=== PATIENT | male | born 1960 | race African-American/Black ===

== ENCOUNTER 2016-06-20 08:00 | Inpatient (IN) | payer MEDICAID ==
[2016-06-09 12:27] LABS: HEMATOCRIT 38.6 % (37.9-51.0); HEMOGLOBIN 13.3 g/dL (13.5-17.0); HGB HCT DIFFERENCE 1.3; MEAN CORPUSCULAR HEMOGLOBIN 34.8 pg (27.0-33.4); MEAN CORPUSCULAR HGB CONC 34.3 g/dL (32.0-36.0); MEAN CORPUSCULAR VOLUME 102 fl (80-97); RED BLOOD COUNT 3.81 10^6/uL (4.35-5.55); RED CELL DISTRIBUTION WIDTH 13.5 % (11.5-14.0); WHITE BLOOD COUNT 6.4 10^3/uL (4.0-10.5)
[2016-06-09 12:50] LABS: APPEARANCE,URINE CLEAR; BILIRUBIN,URINE NEGATIVE (NEGATIVE); GLUCOSE, URINE NEGATIVE (NEGATIVE); KETONES,URINE NEGATIVE (NEGATIVE); LEUKOCYTE ESTERASE,URINE NEGATIVE (NEGATIVE); NITRITE,URINE NEGATIVE (NEGATIVE); PROTEIN,URINE NEGATIVE (NEGATIVE); URINE SPECIFIC GRAVITY 1.023; UROBILINOGEN,URINE NEGATIVE mg/dL (<2.0)
[2016-06-09 12:57] LABS: ANION GAP 14 (5-19); BLOOD UREA NITROGEN 10 mg/dL (7-20); CALCIUM 9.7 mg/dL (8.4-10.2); CARBON DIOXIDE 26 mmol/L (22-30); CHLORIDE 105 mmol/L (98-107); CREATININE RESULT 0.62 mg/dL (0.52-1.25); GLUCOSE 142 mg/dL (75-110); SODIUM 145.3 mmol/L (137-145)
--- NOTE | 2016-06-09 22:19 | EKG REPORT ---
SEVERITY:- NORMAL ECG - SINUS RHYTHM : Confirmed by: Irene Chau 09-Jun-2016 22:19:06
[~2016-06-20 08:00] MED LIST: BUPIVACAINE INJ/PF LIPOSOME/PF 266 MG/20 ML SDV INFIL PRN; CEFAZOLIN INJ 1 GM VIAL IV PRN; IBUPROFEN 800 MG in NORMAL SALINE 250 ML IV PRN; LACTATED RINGERS 1000 ML IV PRN; LANSOPRAZOLE 15 MG TAB.RAP.DR PO PRN; LIDOCAINE 0.5% INJ-PF (5 MG/ML) 50 ML SDV SUBCUT PRN; OXYCODONE HCL SR 10 MG TABLET PO PRN; SCOPOLAMINE HYDROBROMIDE 1.5 MG PATCH.TD72 TD PRN; VANCOMYCIN HCL 1,000 MG in DEXTROSE 5%-WATER 250 ML IV PRN
[2016-06-20] MEDS ORDERED: MIDAZOLAM 2 MG/2 ML INJ ONE (08:45)
[2016-06-20] MEDS ORDERED: FENTANYL CITRATE INJ/PF 100 MCG/2 ML AMPUL ONE (08:45)
[2016-06-20] MEDS ORDERED: DEXMEDETOMIDINE INJ 80 MCG/20 ML VIAL IV ONE (08:46)
[2016-06-20] MEDS ORDERED: EPHEDRINE SULFATE INJ 50 MG/1 ML AMPULE ONE (08:46)
[2016-06-20] MEDS ORDERED: TRANEXAMIC ACID INJ/PF 1,000 MG/10 ML SDV IV ONE (08:46)
[2016-06-20] MEDS ORDERED: PROPOFOL INJ 200 MG/20 ML VIAL IV ONE (08:46)
[2016-06-20] MEDS ORDERED: THROMBIN (BOVINE) TOPICAL 20000 UNIT VIAL ONE (08:52)
[2016-06-20] MEDS ORDERED: THROMBIN (BOVINE) 5000 UNIT EPITAXIS KIT ONE (08:53)
[2016-06-20] MEDS ORDERED: BUPIVACAINE INJ/PF LIPOSOME/PF 266 MG/20 ML SDV ONE (08:53)
[2016-06-20] MEDS ORDERED: MORPHINE SULFATE 10 MG/ML INJ IV PRN ×3 (10:30→11:01)
[2016-06-20] MEDS ORDERED: FENTANYL CITRATE INJ/PF 100 MCG/2 ML AMPUL IV PRN ×3 (10:30)
[2016-06-20] MEDS ORDERED: PROMETHAZINE HCL INJ 25 MG/1 ML VIAL IV PRN ×2 (10:30)
[2016-06-20] MEDS ORDERED: MEPERIDINE HCL/PF INJ 25 MG/1 ML DISP.SYRIN IV PRN (10:30)
[2016-06-20] MEDS ORDERED: OXYCODONE-ACETAMINOPHEN 5-325 MG TABLET PO PRN ×2 (10:30)
[2016-06-20] MEDS ORDERED: DIPHENHYDRAMINE HCL 50 MG/ML VIAL IV PRN ×2 (10:30→11:01)
--- NOTE | 2016-06-20 11:00 | Operative Report ---
Operative Report DATE OF SURGERY: 06/20/16 PREOPERATIVE DIAGNOSIS: Right hip arthritis OPERATION: Right hip arthroplasty SURGEON: BRISSA KIM ANESTHESIA: Spinal TISSUE REMOVED OR ALTERED: Bone to pathology ESTIMATED BLOOD LOSS: 100 INTRAOPERATIVE FINDINGS: Multiple joint mice PROCEDURE: Implants used: Femur: Striker accolade to #4 stem Acetabular shell:, 56 mm hemispherical shell Liner: 36 mm flat cross-link polyethylene liner Head: 36 mm chrome cobalt head standard neck The patient is placed in a, left lateral decubitus position on the operating table. The, right lower extremity and hindquarter is prepped and draped in a sterile fashion. A curvilinear incision was made over the greater trochanter a posterior approach the hip was taken. The femoral head is dislocated and the femoral neck transected using an oscillating saw. Attention was next turned to the acetabulum. Soft tissues cleared off the acetabulum using electrocautery. The acetabulum was then prepared using a series of hemispherical reamers until a, 55 millimeters reamer is seated. Subsequently a 56 millimeters [place] titanium hemispherical shell is impacted into position and secured with one screw. A standard flat 36 millimeters cross- link liner is impacted into the shell. Attention was next turned to the femur. Access is gained to the femoral canal using a box osteotome to the piriformis fossa. The femur is then prepared using a series of broaches until a number for broach is seated. A trial reduction was now performed using a 36 millimeters head with standard neck. Preoperative leg length was recreated and is excellent anterior posterior stability. A decision was made to proceed with the above construct. All trial implants were removed. The wound is irrigated with pulsed lavage. A number for stem is impacted into the femoral canal. A trial reduction was again performed with a 36 mm head and a standard neck. Findings as previously. The hip was dislocated one last time and the final chrome-cobalt head is impacted onto the trunnion. The hip was reduced. Wound is copiously irrigated with pulsed lavage. Sent closed in layers using interrupted Vicryl followed by josy. A sterile dressing is applied and the patient's returned to recovery room in satisfactory patient.
[2016-06-20] MEDS ORDERED: ONDANSETRON HCL INJ/PF 4 MG/2 ML SDV IV PRN (11:01)
[2016-06-20] MEDS ORDERED: RINGERS SOLUTION,LACTATED 1,000 ML IV PRN (11:01)
[2016-06-20] MEDS ORDERED: MORPHINE SULFATE 10 MG/ML INJ IM PRN (11:01)
[2016-06-20] MEDS ORDERED: ZOLPIDEM TARTRATE 5 MG TABLET PO PRN (11:01)
[2016-06-20] MEDS ORDERED: ONDANSETRON 4 MG TAB.RAPDIS PO PRN (11:01)
[2016-06-20] MEDS ORDERED: ACETAMINOPHEN 325 MG TABLET PO PRN (11:01)
[2016-06-20] MEDS ORDERED: MAG HYDROX/AL HYDROX/SIMETH SUSP 30 ML UDCUP PO PRN (11:01)
[2016-06-20] MEDS ORDERED: LIDOCAINE 2% INJ-PF (20 MG/ML) 10 ML AMPUL ONE (13:43)
[2016-06-20] MEDS ORDERED: ONDANSETRON HCL INJ/PF 4 MG/2 ML SDV ONE (13:43)
[2016-06-20] MEDS: OXYCODONE HCL IR 5 MG TABLET PO PRN (15:44)
[2016-06-20] MEDS: MORPHINE SULFATE 10 MG/ML INJ IV PRN ×2 (16:15→20:39)
[2016-06-20] MEDS ORDERED: (PENDING PHARMACY ID) (Potassium Chloride [Klor-Con] 20 MEQ) PO SCH (18:00)
[2016-06-20] MEDS: CARVEDILOL 12.5 MG TABLET PO SCH (18:25)
[2016-06-20] MEDS: FERROUS SULFATE 325 MG TABLET PO SCH (18:26)
[2016-06-20] MEDS: PREGABALIN 75 MG CAPSULE PO SCH (18:26)
[2016-06-20] MEDS: POTASSIUM CHLORIDE 10 MEQ TABLET.SA PO SCH (18:26)
[2016-06-20] MEDS: SENNOSIDES/DOCUSATE 8.6-50 MG 1 EACH TABLET PO SCH (18:26)
[2016-06-20] MEDS: OXYCODONE HCL SR 10 MG TABLET PO SCH (21:57)
[2016-06-20] MEDS: RIVAROXABAN 10 MG TABLET PO SCH (21:57)
[2016-06-20] MEDS ORDERED: VANCOMYCIN HCL 1,000 MG in DEXTROSE 5%-WATER 250 ML IV ONE (23:01)
[2016-06-21] MEDS: LANSOPRAZOLE 30 MG TAB.RAP.DR PO SCH (05:02)
[2016-06-21] MEDS: OXYCODONE HCL IR 5 MG TABLET PO PRN ×2 (05:02→16:28)
--- NOTE | 2016-06-21 06:52 | PDOC PROGRESS REPORT ---
Subjective Progress Note for:: 06/21/16 Subjective:: Patient denies any pain Physical Exam Vital Signs: Temp Pulse Resp BP Pulse Ox 37.7 C 99 20 145/76 H 96 06/21/16 04:50 06/21/16 04:50 06/21/16 04:50 06/21/16 04:50 06/21/16 04:50 Intake & Output 06/19/16 06/20/16 06/21/16 06:59 06:59 06:59 Intake Total 4530 Output Total 3040 Balance 1490 General appearance: PRESENT: no acute distress Head exam: PRESENT: normocephalic Eye exam: PRESENT: EOMI Respiratory exam: PRESENT: unlabored Cardiovascular exam: PRESENT: RRR Pulses: PRESENT: +1 pedal pulses bilateral Vascular exam: PRESENT: normal capillary refill GI/Abdominal exam: PRESENT: soft Extremities exam: PRESENT: other - Right lower extremity dressing with some minor drainage. Leg lengths are equal. Neurovascular examinations intact. Results Laboratory Results: 06/20/16 06/20/16 08:29 08:29 Potassium 4.0 Blood Type A POSITIVE Antibody Screen NEGATIVE Impressions: Chest X-Ray 06/09/16 11:56 IMPRESSION: NO SIGNIFICANT RADIOGRAPHIC FINDING IN THE CHEST. Pelvis X-Ray 06/20/16 11:02 IMPRESSION: SATISFACTORY POSTOPERATIVE PELVIS. Status: Imported from PACS Assessment & Plan - Diagnosis (1) Avascular necrosis of bone of right hip Is this a current diagnosis for this admission?: YesPlan: 55-year-old black male postop day 1 from right hip arthroplasty. Yesterday was limited progress made with physical therapy. Plan will be for aggressive physical therapy today on a weightbearing as tolerated basis. Anticipate discharge home tomorrow with home health [facility], we'll Walker, bedside commode. - Time Time Spent with patient: 15-24 minutes Anticipated discharge: Home with Homehealth Within: within 24 hours
[2016-06-21 06:53] LABS: HEMATOCRIT 34.2 % (37.9-51.0); HEMOGLOBIN 11.5 g/dL (13.5-17.0); HGB HCT DIFFERENCE 0.3; MEAN CORPUSCULAR HEMOGLOBIN 34.6 pg (27.0-33.4); MEAN CORPUSCULAR HGB CONC 33.7 g/dL (32.0-36.0); MEAN CORPUSCULAR VOLUME 103 fl (80-97); RED BLOOD COUNT 3.33 10^6/uL (4.35-5.55); RED CELL DISTRIBUTION WIDTH 13.5 % (11.5-14.0); WHITE BLOOD COUNT 7.2 10^3/uL (4.0-10.5)
[2016-06-21 07:17] LABS: ANION GAP 6 (5-19); BLOOD UREA NITROGEN 6 mg/dL (7-20); CALCIUM 8.8 mg/dL (8.4-10.2); CARBON DIOXIDE 26 mmol/L (22-30); CHLORIDE 105 mmol/L (98-107); CREATININE RESULT 0.73 mg/dL (0.52-1.25); GLUCOSE 125 mg/dL (75-110); SODIUM 137.1 mmol/L (137-145)
[2016-06-21 07:26] LABS: POTASSIUM 4.9 mmol/L (3.6-5.0)
[2016-06-21] MEDS: FERROUS SULFATE 325 MG TABLET PO SCH ×2 (10:24→17:13)
[2016-06-21] MEDS: PRENATAL VITAMIN W-O CA NO5/FE FUMARATE/FA CAPSULE PO SCH (10:24)
[2016-06-21] MEDS: SENNOSIDES/DOCUSATE 8.6-50 MG 1 EACH TABLET PO SCH ×2 (10:24→17:13)
[2016-06-21] MEDS: AMLODIPINE BESYLATE 10 MG TABLET PO SCH (10:24)
[2016-06-21] MEDS: OXYCODONE HCL SR 10 MG TABLET PO SCH ×2 (10:24→21:37)
[2016-06-21] MEDS: FUROSEMIDE 40 MG TABLET PO SCH (10:25)
[2016-06-21] MEDS: PREGABALIN 75 MG CAPSULE PO SCH ×2 (10:25→17:13)
[2016-06-21] MEDS: CARVEDILOL 12.5 MG TABLET PO SCH (17:13)
[2016-06-21] MEDS: POTASSIUM CHLORIDE 10 MEQ TABLET.SA PO SCH (17:13)
[2016-06-21] MEDS: RIVAROXABAN 10 MG TABLET PO SCH (21:37)
[2016-06-22 06:00] LABS: HEMATOCRIT 30.8 % (37.9-51.0); HEMOGLOBIN 10.4 g/dL (13.5-17.0); HGB HCT DIFFERENCE 0.4; MEAN CORPUSCULAR HEMOGLOBIN 34.3 pg (27.0-33.4); MEAN CORPUSCULAR HGB CONC 33.7 g/dL (32.0-36.0); MEAN CORPUSCULAR VOLUME 102 fl (80-97); RED BLOOD COUNT 3.02 10^6/uL (4.35-5.55); RED CELL DISTRIBUTION WIDTH 13.2 % (11.5-14.0); WHITE BLOOD COUNT 8.5 10^3/uL (4.0-10.5)
[2016-06-22] MEDS: LANSOPRAZOLE 30 MG TAB.RAP.DR PO SCH (06:43)
--- NOTE | 2016-06-22 07:01 | PDOC DISCHARGE SUMMARY ---
General - Admit/Disc Date/PCP Admission Date/Primary Care Provider: 06/20/16 08:00 CHAVA MOSLEY PA-C Discharge Date: 06/22/16 - Discharge Diagnosis (1) Avascular necrosis of bone of right hip Is this a current diagnosis for this admission?: YesSummary: Patient's a 55-year-old black male who presents with progressive right hip pain and functional disability secondary avascular necrosis of the right femoral head. Patient's admitted for elective right hip arthroplasty. - Additional Information Resuscitation Status: Full Code Discharge Diet: As Tolerated, Regular Discharge Activity: Balance Activity w/Rest Home Medications: Amlodipine Besylate 10 mg PO QAM 06/07/16 Aspirin [Ecotrin 81 mg EC Tablet] 81 mg PO QAM 06/07/16 Carvedilol [Coreg 12.5 mg Tablet] 25 mg PO QPM 06/07/16 Ferrous Sulfate [Iron] 325 mg PO BID 06/07/16 Furosemide [Lasix 40 mg Tablet] 40 mg PO QAM 06/07/16 Potassium Chloride [Klor-Con] 20 meq PO QPM 06/07/16 Oxycodone HCl [Oxy-Ir 5 mg Tablet] 5 mg PO Q6HP PRN #0 tablet 06/22/16 Rivaroxaban [Xarelto 10 mg Tablet] 10 mg PO QHS #0 tablet 06/22/16 History of Present Illness History of Present Illness: VÍCTOR VELASQUEZ is a 55 year old male with progressive right hip pain and functional disability. Hospital Course Hospital Course: Patient submitted to the operating room where he undergoes uncomfortable right hip arthroplasty. His returned to floor in satisfactory condition. Makes excellent progress with physical therapy and weightbearing as tolerated basis. Dressing is changed on postop day 2. Wound is clean dry and intact. Leg lengths are equal. Neurovascular examinations intact. Physical Exam Vital Signs: Temp Pulse Resp BP Pulse Ox 38.3 C H 99 18 138/69 H 100 06/21/16 23:00 06/21/16 23:00 06/21/16 23:00 06/21/16 23:00 06/21/16 23:00 Intake & Output 06/20/16 06/21/16 06/22/16 06:59 06:59 06:59 Intake Total 4530 1200 Output Total 3040 400 Balance 1490 800 Weight 71.2 kg General appearance: PRESENT: no acute distress Head exam: PRESENT: normocephalic Respiratory exam: PRESENT: unlabored Cardiovascular exam: PRESENT: RRR Pulses: PRESENT: +1 pedal pulses bilateral Vascular exam: PRESENT: normal capillary refill GI/Abdominal exam: PRESENT: soft Rectal exam: PRESENT: deferred Extremities exam: PRESENT: other - Leg lengths are equal. Neurovascular examinations intact. Dressings clean dry and intact. Neurological exam: PRESENT: alert, awake, oriented to person, oriented to place , oriented to time, oriented to situation, CN II-XII grossly intact. ABSENT: motor sensory deficit Psychiatric exam: PRESENT: appropriate affect, normal mood. ABSENT: homicidal ideation, suicidal ideation Results Laboratory Results: 06/22/16 05:24 06/21/16 05:56 06/21/16 06/22/16 05:56 05:24 WBC 8.5 RBC 3.02 L Hgb 10.4 L Hct 30.8 L MCV 102 H MCH 34.3 H MCHC 33.7 RDW 13.2 Plt Count 187 Sodium 137.1 Potassium 4.9 Chloride 105 Carbon Dioxide 26 Anion Gap 6 BUN 6 L Creatinine 0.73 Est GFR ( Amer) > 60 Est GFR (Non-Af Amer) > 60 Glucose 125 H Calcium 8.8 Impressions: Chest X-Ray 06/09/16 11:56 IMPRESSION: NO SIGNIFICANT RADIOGRAPHIC FINDING IN THE CHEST. Pelvis X-Ray 06/20/16 11:02 IMPRESSION: SATISFACTORY POSTOPERATIVE PELVIS. Status: Imported from PACS Qualifiers VTE patient discharged on overlapping Therapy?: Yes Plan Discharge Plan: Patient to be discharged with home health nursing, home health physical therapy , we'll Walker, bedside commode. Follow-up will be with Dr. Hansen in the [facility] for surgery approximately 2 weeks for staple removal. Time Spent: Less than 30 Minutes
[2016-06-22] MEDS: OXYCODONE HCL IR 5 MG TABLET PO PRN (08:19)
[2016-06-22] MEDS: FUROSEMIDE 40 MG TABLET PO SCH (08:19)
[2016-06-22] MEDS: AMLODIPINE BESYLATE 10 MG TABLET PO SCH (08:19)
[2016-06-22] MEDS: OXYCODONE HCL SR 10 MG TABLET PO SCH (09:14)
[2016-06-22] MEDS: FERROUS SULFATE 325 MG TABLET PO SCH (09:15)
[2016-06-22] MEDS: SENNOSIDES/DOCUSATE 8.6-50 MG 1 EACH TABLET PO SCH (09:15)
[2016-06-22] MEDS: PREGABALIN 75 MG CAPSULE PO SCH (09:15)
[2016-06-22] MEDS: PRENATAL VITAMIN W-O CA NO5/FE FUMARATE/FA CAPSULE PO SCH (09:15)
[2016-06-22 09:23] VITALS: BP 142/78
== END 2016-06-22 13:41 | disposition home health service (06) | DRG 470 ==
LOC: INOR 08:00 → 4S 12:13
PROVIDERS: ADMIT Orthopaedic Surgery; ATTEND Orthopaedic Surgery
PROC: 0SR902Z Replacement of Right Hip Joint with Metal on Polyethylene Synthetic Substitute, Open Approach (ICD-10-PCS; principal; 2016-06-20 10:00)
DX: M87.851 Other osteonecrosis, right femur (principal); F17.200 Nicotine dependence, unspecified, uncomplicated; I10 Essential (primary) hypertension; Z79.82 Long term (current) use of aspirin; Z79.899 Other long term (current) drug therapy
CPT/HCPCS: 01214; 36415; 71020; 72170; 80048; 81001; 83036; 84132; 85027; 86850; 86900; 86901; 88304; 88311; 93005; 93010; 94799; C1713; C9290; J0690; J1741; J2250; J2270; J2405; J2704; J3010; J3370; J3490; J7050; J7060

== ENCOUNTER → 2016-08-04 | Outpatient (CLI) | payer MEDICAID | LOC: OD 10:12 | PROVIDERS: ATTEND Physician Assistant | DX: M79.652 Pain in left thigh (principal); M54.12 Radiculopathy, cervical region | CPT/HCPCS: 72050 ==

== ENCOUNTER → 2016-08-16 | Outpatient (CLI) | payer MEDICAID | LOC: OD 09:17 | PROVIDERS: ATTEND Physician Assistant | DX: M54.42 Lumbago with sciatica, left side (principal) | CPT/HCPCS: 72110 ==

== ENCOUNTER → 2016-09-06 | Outpatient (CLI) | payer MEDICAID ==
--- NOTE | 2016-09-06 13:27 | EKG REPORT ---
SEVERITY:- ABNORMAL ECG - SINUS RHYTHM CONSIDER LEFT VENTRICULAR HYPERTROPHY BORDERLINE PROLONGED QT INTERVAL : Confirmed by: Ryan Hidalgo MD 06-Sep-2016 13:27:06
[2016-09-06 14:22] LABS: ANION GAP 17 (5-19); BLOOD UREA NITROGEN 8 mg/dL (7-20); CALCIUM 9.9 mg/dL (8.4-10.2); CARBON DIOXIDE 24 mmol/L (22-30); CHLORIDE 104 mmol/L (98-107); CREATININE RESULT 0.84 mg/dL (0.52-1.25); GLUCOSE 125 mg/dL (75-110); POTASSIUM 3.9 mmol/L (3.6-5.0); SODIUM 145.3 mmol/L (137-145)
== END ==
LOC: OD 12:15
PROVIDERS: ATTEND Orthopaedic Surgery
DX: I10 Essential (primary) hypertension (principal)
CPT/HCPCS: 36415; 80048; 93005; 93010

== ENCOUNTER 2018-03-13 07:40 | Day surgery (SDC) | payer MEDICARE, MEDICAID ==
[2018-03-07 17:12] LABS: HEMATOCRIT 39.2 % (37.9-51.0); HEMOGLOBIN 13.6 g/dL (13.5-17.0); MEAN CORPUSCULAR HEMOGLOBIN 34.6 pg (27.0-33.4); MEAN CORPUSCULAR HGB CONC 34.7 g/dL (32.0-36.0); MEAN CORPUSCULAR VOLUME 100 fl (80-97); PLATELET COUNT 216 10^3/uL (150-450); RED BLOOD COUNT 3.93 10^6/uL (4.35-5.55); RED CELL DISTRIBUTION WIDTH 13.9 % (11.5-14.0); WHITE BLOOD COUNT 8.3 10^3/uL (4.0-10.5)
[2018-03-07 17:17] LABS: APPEARANCE,URINE CLEAR; BILIRUBIN,URINE NEGATIVE (NEGATIVE); COLOR,URINE COLORLESS; GLUCOSE, URINE NEGATIVE (NEGATIVE); KETONES,URINE NEGATIVE (NEGATIVE); LEUKOCYTE ESTERASE,URINE NEGATIVE (NEGATIVE); NITRITE,URINE NEGATIVE (NEGATIVE); PROTEIN,URINE NEGATIVE (NEGATIVE); URINE SPECIFIC GRAVITY 1.002; UROBILINOGEN,URINE NEGATIVE mg/dL (<2.0)
[2018-03-07 17:35] LABS: ANION GAP 13 (5-19); BLOOD UREA NITROGEN 11 mg/dL (7-20); CALCIUM 9.5 mg/dL (8.4-10.2); CARBON DIOXIDE 30 mmol/L (22-30); CHLORIDE 96 mmol/L (98-107); GLUCOSE 111 mg/dL (75-110); POTASSIUM 3.6 mmol/L (3.6-5.0); SODIUM 139.1 mmol/L (137-145)
--- NOTE | 2018-03-07 19:22 | EKG REPORT ---
SEVERITY:- BORDERLINE ECG - SINUS RHYTHM BORDERLINE PROLONGED QT INTERVAL : Confirmed by: Anali Mendoza MD 07-Mar-2018 19:22:01
[~2018-03-13 07:40] MED LIST changes: -BUPIVACAINE INJ/PF LIPOSOME/PF 266 MG/20 ML SDV INFIL PRN; +CEFAZOLIN 2 GM/D5W RTU 2 GM/50 ML RTUPB IV ONE; +CEFAZOLIN 2 GM/D5W RTU 2 GM/50 ML RTUPB IV PRN; -CEFAZOLIN INJ 1 GM VIAL IV PRN; +FENTANYL CITRATE INJ/PF 100 MCG/2 ML AMPUL ONE; -IBUPROFEN 800 MG in NORMAL SALINE 250 ML IV PRN; -LANSOPRAZOLE 15 MG TAB.RAP.DR PO PRN; +MIDAZOLAM 2 MG/2 ML INJ ONE; +ONDANSETRON HCL INJ/PF 4 MG/2 ML SDV ONE; -OXYCODONE HCL SR 10 MG TABLET PO PRN; +PROPOFOL INJ 200 MG/20 ML VIAL IV ONE; -SCOPOLAMINE HYDROBROMIDE 1.5 MG PATCH.TD72 TD PRN; -VANCOMYCIN HCL 1,000 MG in DEXTROSE 5%-WATER 250 ML IV PRN
[2018-03-13] MEDS ORDERED: BUPIVACAINE HCL 0.5 % INJ/PF 30 ML SDV ONE (07:49)
[2018-03-13] MEDS ORDERED: LIDOCAINE 1% INJ-PF (10 MG/ML) 30 ML SDV ONE (07:49)
[2018-03-13 08:22] LABS: PROTHROMBIN TIME 12.6 SEC (11.4-15.4)
[2018-03-13 08:23] LABS: PARTIAL THROMBOPLASTIN TIME 27.4 SEC (23.5-35.8)
--- NOTE | 2018-03-13 08:27 | RADIOLOGY REPORT (SQ) ---
EXAM DESCRIPTION: CHEST SINGLE VIEW COMPLETED DATE/TIME: 03/13/2018 8:17 am REASON FOR STUDY: PREOP COMPARISON: None. EXAM PARAMETERS: NUMBER OF VIEWS: One view. TECHNIQUE: Single frontal radiographic view of the chest acquired. RADIATION DOSE: NA LIMITATIONS: None. FINDINGS: LUNGS AND PLEURA: No opacities, masses or pneumothorax. No pleural effusion. MEDIASTINUM AND HILAR STRUCTURES: No masses. Contour normal. HEART AND VASCULAR STRUCTURES: Heart normal in size. Normal vasculature. BONES: No acute findings. HARDWARE: None in the chest. OTHER: No other significant finding. IMPRESSION: NO ACUTE RADIOGRAPHIC FINDING IN THE CHEST. TECHNICAL DOCUMENTATION: JOB ID: [id number] [employer]- All Rights Reserved Reading location - IP/workstation name: [email or web address]
[2018-03-13] MEDS ORDERED: DEXAMETHASONE SOD PHOSPHATE INJ 4 MG/1 ML VIAL ONE (08:30)
[2018-03-13] MEDS ORDERED: SUCCINYLCHOLINE CHLORIDE INJ 200 MG/10 ML VIAL ONE (08:30)
[2018-03-13] MEDS ORDERED: KETOROLAC TROMETHAMINE 60 MG/2 ML SDV ONE (08:30)
[2018-03-13] MEDS ORDERED: ALBUTEROL SULFATE 0.083% NEB 2.5 MG/3 ML AMPUL NEB ONE (09:19)
[2018-03-13] MEDS ORDERED: ALBUTEROL SULFATE 0.083% NEB 2.5 MG/3 ML AMPUL NEB PRN (09:22)
[2018-03-13] MEDS ORDERED: AMLODIPINE BESYLATE 10 MG TABLET PO PRN (09:25)
[2018-03-13] MEDS ORDERED: LABETALOL HCL INJ 20 MG/4 ML DISP.SYRIN IV ONE (10:36)
[2018-03-13] MEDS ORDERED: FENTANYL CITRATE INJ/PF 100 MCG/2 ML AMPUL IV PRN ×3 (10:41)
[2018-03-13] MEDS ORDERED: OXYCODONE-ACETAMINOPHEN 5-325 MG TABLET PO PRN ×3 (10:41→12:37)
[2018-03-13] MEDS ORDERED: PROMETHAZINE HCL INJ 25 MG/1 ML VIAL IV PRN ×2 (10:41)
[2018-03-13] MEDS ORDERED: MEPERIDINE HCL/PF INJ 25 MG/1 ML DISP.SYRIN IV PRN (10:41)
[2018-03-13] MEDS ORDERED: DIPHENHYDRAMINE HCL 50 MG/ML VIAL IV PRN (10:41)
[2018-03-13] MEDS ORDERED: MORPHINE SULFATE 10 MG/ML INJ IV PRN ×2 (10:41→12:37)
[2018-03-13] MEDS ORDERED: FENTANYL CITRATE INJ/PF 100 MCG/2 ML AMPUL ONE (11:49)
--- NOTE | 2018-03-13 12:21 | Discharge Summary ---
Discharge Summary (SDC) - Discharge Final Diagnosis: Persistent left carpal/cubital tunnel syndrome Date of Surgery: 03/13/18 Discharge Date: 03/13/18 Condition: Good Treatment or Instructions: Schedule Follow Up w/ Dr. Keon Landers @ [facility] for Surgery to be seen in 10-14 days or as scheduled Brothers: [place]: [place]: Ice and elevate Keep splint clean/dry/intact. If your fingers become numb please unwrap the Jozef wrap but leave the splint in place, if the sensation does not return within 30 minutes please return to the emergency department. May begin finger range of motion attempting to make full fist. Please use ibuprofen (Motrin or Advil) 600-800 mg every 8 hours as needed for pain or fever DO NOT TAKE w/ TORADOL may use once TORADOL complete. You may also use acetaminophen (Tylenol) 1000 mg every 4-6 hours as needed for pain or fever. Please be aware that many medications contain acetaminophen, do not exceed a total of 1000 mg of acetaminophen every 6 hours. If ibuprofen and acetaminophen are not sufficient for your pain you may take the Percocet/[place]. Please be aware that the Percocet/[place] does contain Tylenol. Stool softener of choice when on pain medication. Prescriptions: Ketorolac Tromethamine [Toradol 10 mg Tablet] 10 mg PO Q8HP PRN #12 tablet PRN Reason: Oxycodone HCl/Acetaminophen [Percocet 5-325 mg Tablet] 1 tab PO Q6 PRN #25 tab PRN Reason: Referrals: MALINDA JOHNSON NP [Primary Care Provider] - Discharge Diet: As Tolerated Respiratory Treatments at Home: Deep Breathing/Coughing Discharge Activity: No Lifting Over 10 Pounds, No Lifting/Push/Pulling Report the Following to Your Physician Immediately: Fever over 101 Degrees, Unusual Bleeding, Redness, Swelling, Warmth, Increased Soreness, Drainage-Yellow
[2018-03-13] MEDS: FENTANYL CITRATE INJ/PF 100 MCG/2 ML AMPUL ONE ×2 (12:35→12:40)
[2018-03-13] MEDS ORDERED: ONDANSETRON HCL INJ/PF 4 MG/2 ML SDV IV PRN (12:37)
--- NOTE | 2018-03-13 12:37 | Operative Report ---
Operative Report DATE OF SURGERY: 03/13/18 PREOPERATIVE DIAGNOSIS: Persistent left carpal/cubital tunnel syndrome POSTOPERATIVE DIAGNOSIS: Same OPERATION: 1. Revision carpal tunnel release with hypo-thenar fat pad transfer placement of Axogen nerve wrap. 2. Revision cubital tunnel release with adipose-fascial flap, transposition placement of Axogen nerve wrap SURGEON: SHANNA KLINE ANESTHESIA: GA COMPLICATIONS: None ESTIMATED BLOOD LOSS: Minimal PROCEDURE: Indication for above procedure: 57-year-old male withHistory of carpal/cubital tunnel syndrome. Patient underwent carpal/cubital tunnel release by different provider but failed to see improvement of his symptoms and actually had worsening of his symptoms. Patient had electrodiagnostic testing demonstrating severe carpal/cubital tunnel syndrome with muscle wasting. At that point we discussed treatment options and decision was made to proceed with operative intervention. Risks and benefits were explained patient verbalized understanding consented for the procedure. Procedure In Detail: Patient was seen and evaluated in the preoperative holding area. The LEFT upper extremity was initialized and marked. Patient received 2g of Ancef IV for bacterial prophylaxis. Patient was taken back to the operative room where transferred to the operative table and placed under general anesthesia. Once they were adequately anesthetized a nonsterile tourniquet was placed on the upper extremity. A surgical team debriefing was performed ensuring all instrumentation was available, the surgical procedure was discussed with possible concerns reviewed. The upper extremity was prepped with chlorhexidine and alcohol and draped in a sterile fashion. A timeout was done identifying correct patient, procedure and extremity everyone in attendance agree with this and verbalized no concerns. The extremity was exsanguinated the tourniquet was inflated to 250 mmHg. Previous skin incision was utilized and extended proximally and distally 6 cm. Blunt dissection was performed to the subcutaneous tissue any peripheral veins were coagulated with bipolar cautery. Branches of the medial antebrachial cutaneous nerves were identified just distal to the cubital tunnel and tagged with a vessel loop. The ulnar nerve was identified proximally within normal anatomy. Neuro lysis was then performed in a distal direction. There was significant scarring of the ulnar nerve to the medial intermuscular septum the nerve was freed at this level leaving a small amount of scar tissue within the nerve along with the posterior vessels to maintain vascularity. Just proximal to the medial epicondyle there was significant compression of the ulnar nerve with evidence of likely neuroma incontinuity there is no evidence of nerve discontinuity. This was neurolysed and freed from the underlying fascia of the flexor pronator mass and medial epicondyle. Neuro lysis continued in a distal direction until the nerve was found as it entered the FCU aponeurosis at this level was deep fascia of the FCU aponeurosis further contributing to compression. Between these 2 levels there was notable evidence of scarring of the nerve without his normal soft consistency. But once again there is no evidence of discontinuity. The nerve was then freed further within the muscle bellies of the FCU and the remnant fascial bands were released. Once the ulnar nerve was adequately mobilized it was easily transposed anteriorly. The adipose along the anterior aspect of the elbow was isolated and a adipose- fascial flap dissected out to its pedicle along the medial aspect of the elbow. A 10 x 40 mm Axogen nerve wrap was placed and secured with 6-0 nylon suture. Once adequate excursion and adipose was freed up the nerve was transposed anteriorly and secured with the adipose fascial flap utilizing 3-0 Vicryl suture. With elbow flexion/extension there was no evidence of residual compression proximally or distally. Any peripheral veins were coagulated with bipolar cautery. After completion of the carpal tunnel the wound was once again irrigated with normal saline and once the tourniquet was deflated any peripheral bleeding was controlled with bipolar cautery until the wound was dry. Subcutaneous tissues were closed with interrupted 4-0 Monocryl suture. Skin was closed with running horizontal mattress 3-0 nylon suture. Patient's previous carpal tunnel incision was open distally by an additional 1.5 cm approximately by 6 cm just ulnar to the palmaris longus. Blunt dissection was performed proximally until the median nerve was identified within normal tissue. Neuro lysis was then performed distally there was significant scarring of the median nerve to the adjacent palmaris longus and the radial leaflet of the transverse carpal ligament. There is also residual compression along the distal aspect of the transverse carpal ligament causing deformation of the median nerve. The nerve was then neurolysed throughout its entirety to ensure no residual compression. It was freed from the radial leaflet of the transverse carpal ligament. The palmar cutaneous branch of the median nerve was identified without disruption. The [id number] fat was then elevated off the subcutaneous tissue leaving a small amount of adipose to avoid devascularization of the skin flap. This was dissected volarly to the level of the palmaris brevis muscle once the muscle was identified dissection proceeded in a dorsal direction. The ulnar neurovascular bundle was identified and protected. The adipose was then released from the ulnar leaflet of the transverse carpal ligament. The ulnar leaflet was resected and the [place]ipost had adequate excursion for fixation to the undersurface of the radial leaflet. The wound was copiously irrigated with normal saline. A Axogen 10 x 40 mm nerve wrap was placed within the carpal canal. The hypo-thenar fat pad was then secured to the undersurface of the radial leaflet with horizontal mattress 3-0 Monocryl suture which adequately protected the nerve. Wound was copiously irrigated with normal saline. Subcutaneous tissues were closed with interrupted 4-0 Monocryl suture. Skin was closed with running 3-0 nylon sutures times 2. wound was dressed with Xeroform 4 x 4's and patient was placed in a well-padded 30 cc of 0.5% Marcaine were injected along the elbow and wrist for postoperative pain control. Posterior elbow splint maintaining elbow flexion of 60 degrees. Sponge counts, instrument counts, needle counts counts were correct. Patient was then awoken from anesthesia. Transferred from the operating room table to the operating room stretcher. There was no intraoperative complications patient tolerated procedure well stable to PACU. Postoperative plan: Patient will follow-up in the office in 2 weeks for recheck. We will proceed with suture removal at that time. Patient will begin range of motion at that time as well.
[2018-03-13] MEDS ORDERED: OXYCODONE-ACETAMINOPHEN 5-325 MG TABLET ONE (13:17)
[2018-03-13 14:28] VITALS: BP 147/95
== END 2018-03-13 14:20 | disposition home or self-care (01) ==
LOC: OROUT 07:40
PROVIDERS: ATTEND Orthopaedic Surgery
DX: G56.02 Carpal tunnel syndrome, left upper limb (principal); G56.22 Lesion of ulnar nerve, left upper limb; I10 Essential (primary) hypertension; M19.90 Unspecified osteoarthritis, unspecified site; Z01.818 Encounter for other preprocedural examination; F17.210 Nicotine dependence, cigarettes, uncomplicated; Z88.8 Allergy status to other drugs, medicaments and biological substances; Z79.899 Other long term (current) drug therapy
CPT/HCPCS: 93010; 94640; 93005; 36415 ×2; 84132; 85027; 85610; 85730; 80048; 81001; 71045; 64721; 14040; 64718; 64999; C9353; J2250; J3490 ×2; J1100; J1885; J3010; A9270 ×3; J0330; J2405; J2704; J0690; 1810